=== PATIENT | female | born 1940 | race Caucasian/White ===

== ENCOUNTER 2018-12-10 21:06 | Inpatient (IN) ==
--- NOTE | 2018-12-10 21:10 | PROVIDER DOCUMENTATION ---
HPI-Fever - General Chief Complaint: Fever Stated Complaint: ? uti ams Time Seen by Provider: 12/10/18 21:07 Source: patient, EMS Allergies/Adverse Reactions: Patient Allergies Allergy/AdvReac Type Severity Reaction Status Date / Time Sulfa (Sulfonamide AdvReac RASH Verified 01/27/18 14:01 Antibiotics) Home Medications: Home Medication List Medication Instructions Recorded Confirmed Last Taken Type ATORVAstatin [Lipitor] 10 mg PO HS 01/27/18 12/11/18 12/09/18 History Lisinopril 30 mg PO DAILY 01/27/18 12/11/18 12/10/18 History Propranolol L.a. [Inderal LA] 60 mg PO QHS 01/27/18 12/11/18 12/09/18 History Insulin Glargine [Lantus] 40 unit SUBQ QAM 02/24/18 12/11/18 12/10/18 History Insulin Lispro [Humalog] See Protocol SQ TID CC 02/24/18 12/11/18 02/25/18 History 2 Levothyroxine Sodium [Levoxyl] 25 mcg PO DAILY 02/24/18 12/11/18 12/10/18 History Anastrozole [Arimidex] 1 mg PO DAILY 12/11/18 12/11/18 12/10/18 History Clopidogrel Bisulfate [Plavix] 75 mg PO HS 12/11/18 12/11/18 12/09/18 History Ergocalciferol (Vitamin D2) 50,000 unit PO Q7D 12/11/18 12/11/18 12/04/18 History [Vitamin D2] Metformin HCl 1,000 mg PO HS 12/11/18 12/11/18 12/09/18 History - History of Present Illness-Fever Nature of Presenting Problem: Patient is a 78 year old white female who presents by EMS with fever over 101, strong odor of urine, dysuria, and generalized weakness since this am. EMS gave 300ml NS and report blood sugar of 203. Patient arrives with GCS of 15, oriented to person, place, and time. Fever Severity/Quality: reports: greater than 100.5 F Onset/Duration: reports: unsure Timing: reports: still present Severity: reports: moderate Context: reports: decreased mental status Cognitive Baseline: poor alertness Modifying Factors: improves with: urinating - Glascow Coma Score Best Eye Response ([place]): (4) open spontaneously Best Verbal Response ([place]): (5) oriented Best Motor Response ([place]): (6) obeys commands Review of Systems - Adult - REVIEW OF SYSTEMS - ADULT Constitutional: reports: chills, fever Eyes: denies: discharge Ears, Nose, Mouth & Throat: reports: no symptoms reported Cardiovascular: denies: chest pain Respiratory: denies: cough, shortness of breath Gastrointestinal: denies: abdominal pain, nausea, vomiting Genitourinary: reports: see HPI, dysuria Musculoskeletal: reports: muscle weakness Integumentary: denies: rash Neurological: reports: see HPI Psychiatric: reports: see HPI. denies: suicidal thoughts Endocrine: reports: no symptoms reported Hematologic/Lymphatic: reports: no symptoms reported Allergic/Immunologic: reports: no symptoms reported All Other Systems: Reviewed and Negative Past History - Adult - PAST MEDICAL HISTORY-ADULT Review of Records: reports: Old Records Reviewed, Nursing Assessment Review, Medications Reviewed, Social history reviewed & non-contributory. Major Childhood Illnesses: reports: denies history Cardiovascular: reports: denies history Respiratory: reports: denies history Genitourinary: reports: denies history Endocrine/Immune: reports: Diabetes Physical Exam-General - PHYSICAL EXAM-ADULT Initial Vital Signs Reviewed: Yes - CONSTITUTIONAL General Appearance: alert, no apparent distress, obese, slow to respond, other (smells of strong urine) - EYES Eyes: PERRL/EOMI, other (clear) - HEAD, EARS, NOSE, MOUTH & THROAT HENMT: moist mucous membranes - NECK Neck: supple - RESPIRATORY Respiratory: lungs clear - CARDIOVASCULAR Cardiovascular: regular rate, rhythm - GASTROINTESTINAL (ABDOMEN) Abdominal Exam: non tender, soft, other (obese). negative: guarding, rebound - LYMPHATIC Lymphatic: no adenopathy - SKIN Integumentary: warm/dry - NEUROLOGIC Neurologic: grossly normal - PSYCHIATRIC Psych/Mental Status: anxious Progress - PLAN OF CARE/RESULTS Progress/Plan/Lab Results: 12/10/18 21:38 - Final Blood 12/10/18 22:36 - Final Blood Laboratory Results - last 24 hr 12/10/18 12/10/18 12/10/18 21:38 21:38 21:40 WBC 17.68 H RBC 3.99 L Hgb 12.7 Hct 36.2 L MCV 90.7 MCH 31.8 H MCHC 35.1 RDW Std Deviation 12.5 Plt Count 88 L MPV 11.8 H Immature Gran % (Auto) 0.5 Neut % (Auto) 86.2 H Lymph % (Auto) 2.5 L [place] % (Auto) 10.6 H Eos % (Auto) 0.1 Baso % (Auto) 0.1 Immature Gran # (Auto) 0.09 H Neut # (Auto) 15.24 H Lymph # (Auto) 0.44 L [place] # (Auto) 1.87 H Eos # (Auto) 0.02 Baso # (Auto) 0.02 Sodium 129 L Potassium 3.8 Chloride 96 L Carbon Dioxide 19 L Anion Gap 14 BUN 22 Creatinine 1.7 H Estimated GFR/1.73 m2 29 BUN/Creatinine Ratio 13 Glucose 181 H POC Glucose Calculated Osmolality 267 Calcium 8.9 Total Bilirubin 1.96 H AST 20 ALT 15 Alkaline Phosphatase 69 Creatine Kinase 126 Total Protein 5.8 L Albumin 3.2 L Globulin 2.6 Albumin/Globulin Ratio 1.2 Plasma Lactate 3.2 H Urine Source Urine Color Urine Turbidity Urine pH Ur Specific [place] Urine Protein Ur Glucose (Stick) Ur Ketones (Stick) Urine Blood Urine Nitrite Urine Bilirubin Urobilinogen Dipstick Urine Leukocytes Urine WBC (Auto) Urine RBC (Auto) U Epithel Cells (Auto) Urine Bacteria (Auto) Urine Crystals Small Round Cells Urine Casts Urine Yeast-like Cells 12/10/18 12/10/18 21:59 22:26 WBC RBC Hgb Hct MCV MCH MCHC RDW Std Deviation Plt Count MPV Immature Gran % (Auto) Neut % (Auto) Lymph % (Auto) [place] % (Auto) Eos % (Auto) Baso % (Auto) Immature Gran # (Auto) Neut # (Auto) Lymph # (Auto) [place] # (Auto) Eos # (Auto) Baso # (Auto) Sodium Potassium Chloride Carbon Dioxide Anion Gap BUN Creatinine Estimated GFR/1.73 m2 BUN/Creatinine Ratio Glucose POC Glucose 182 H Calculated Osmolality Calcium Total Bilirubin AST ALT Alkaline Phosphatase Creatine Kinase Total Protein Albumin Globulin Albumin/Globulin Ratio Plasma Lactate Urine Source CATH Urine Color ORANGE Urine Turbidity TURBID Urine pH 6.0 Ur Specific [place] 1.005 Urine Protein 300 A Ur Glucose (Stick) NEGATIVE Ur Ketones (Stick) NEGATIVE Urine Blood MODERATE A Urine Nitrite NEGATIVE Urine Bilirubin NEGATIVE Urobilinogen Dipstick NORMAL Urine Leukocytes LARGE A Urine WBC (Auto) TNTC A Urine RBC (Auto) TNTC A U Epithel Cells (Auto) <10 Urine Bacteria (Auto) 4+ Urine Crystals NONE SEEN Small Round Cells NONE SEEN Urine Casts NONE SEEN Urine Yeast-like Cells NONE SEEN Orders Category Date Time Status Admit - [facility] Routine AdmDCTranf 12/11/18 05:35 Active Activity - Up with Assistance ORDERED Care 12/11/18 05:35 Active Cardiac Monitoring DIRECTED Care 12/10/18 21:14 Completed IV Insertion ORDERED Care 12/10/18 21:14 Completed Intake and Output-Strict ORDERED Care 12/11/18 05:35 Active Vital Signs Order Q 8-HR ASSESS Care 12/11/18 05:35 Active Z-Document. for Tele Applied ORDERED Care 12/11/18 05:35 Completed Diabetic Diet Diet 12/11/18 05:35 Active CHEST-1 VIEW [RAD] Stat Exams 12/10/18 21:14 Completed A1C HGB W EST AVG GLUCOSE [CHEM] Routine Lab 12/11/18 06:55 Completed BLOOD CULTURE [BLDCUL] Stat Lab 12/10/18 21:38 Results CBC WITH DIFF [HEME] Routine Lab 12/11/18 06:55 Completed CBC WITH DIFF [HEME] Stat Lab 12/10/18 21:38 Completed CK PROFILE [SP CHEM] Stat Lab 12/10/18 21:38 Completed COMPREHENSIVE METABOLIC PANEL [CHEM] Routine Lab 12/11/18 06:55 Completed COMPREHENSIVE METABOLIC PANEL [CHEM] Stat Lab 12/10/18 21:38 Completed GRAM STAIN [BLDCUL] Stat Lab 12/10/18 21:38 Results GRAM STAIN [BLDCUL] Stat Lab 12/10/18 22:36 Results INFLUENZA SCREEN A/B Stat Lab 12/10/18 21:45 Completed LACTATE, PLASMA [CHEM] Stat Lab 12/10/18 21:40 Completed LACTATE, PLASMA [CHEM] Urgent Lab 12/11/18 07:05 Completed TSH Routine Lab 12/11/18 06:55 Completed URINALYSIS W/POSS RFLX CULT [URINALYSIS] Stat Lab 12/10/18 21:59 Completed URINE CULTURE [RM] Routine Lab 12/10/18 22:34 Results URINE MANUAL MICROSCOPIC [URINALYSIS] Stat Lab 12/10/18 21:59 Completed 0.9% Sodium Chloride Inj [Ns] 1,000 ml Med 12/11/18 05:35 Active IV 125 mls/hr 0.9% Sodium Chloride Inj [Ns] 1,000 ml Med 12/10/18 22:46 Discontinued IV 999 mls/hr 0.9% Sodium Chloride Inj [Ns] 1,000 ml Med 12/11/18 02:26 Discontinued IV 999 mls/hr ATORVAstatin [Lipitor] Med 12/11/18 21:00 Active 10 mg PO HS Acetaminophen [Tylenol] Med 12/10/18 21:15 Discontinued 650 mg PO NOW ONE Acetaminophen [Tylenol] Med 12/11/18 05:35 Active 650 mg PO Q6H PRN PRN Anastrozole [Arimidex] Med 12/11/18 09:00 Active 1 mg PO DAILY CefTRIAXONE [Rocephin] 1 gm Med 12/11/18 05:35 Discontinued 0.9% Sodium Chloride Inj [Ns] 50 ml IV Q24H Clopidogrel [Plavix] Med 12/11/18 21:00 Active 75 mg PO HS Enoxaparin [Lovenox] Med 12/11/18 05:35 Discontinued 30 mg SUBQ Q24H Ergocalciferol (Vitamin D2) [Vitamin D] Med 12/11/18 09:00 Active 50,000 unit PO Q7D Insulin Glargine [Basaglar] Med 12/11/18 09:00 Active 40 unit SUBQ QAM Insulin Human Regular [Humulin R] Med 12/11/18 07:00 Active See Protocol SUBQ 0700,1100,1600,2100 Levothyroxine [Synthroid] Med 12/11/18 07:00 Active 25 microgm PO DAILY@0700 Ondansetron [Zofran] Med 12/11/18 04:38 Discontinued 4 mg .ROUTE .STK-MED ONE Ondansetron [Zofran] Med 12/11/18 04:41 Discontinued 4 mg IV NOW ONE Ondansetron [Zofran] Med 12/11/18 05:35 Discontinued 4 mg IV Q4H PRN PRN Piperacillin/Tazobactam [Zosyn] 3.375 gm Med 12/10/18 22:45 Discontinued 0.9% Sodium Chloride Inj [Ns] 50 ml IV NOW Propranolol L.a. [Inderal LA] Med 12/11/18 21:00 Active 60 mg PO QHS Oxygen Device Stat Oth 12/10/18 21:14 Completed Telemetry [OM.EQ] Routine Oth 12/11/18 05:35 Active Transfer/Admit Order [TRANSFER] Routine Transfer 12/11/18 02:21 Completed Result Diagrams: 12/11/18 06:55 12/11/18 06:55 Departure - Departure Date of Disposition Decision: 12/11/18 Time of Disposition Decision: 06:30 DIAGNOSIS: Urinary tract infection Qualifiers: Urinary tract infection type: site unspecified Hematuria presence: without hematuria Qualified Code(s): N39.0 - Urinary tract infection, site not specified Leukocytosis Qualifiers: Leukocytosis type: unspecified Qualified Code(s): D72.829 - Elevated white blood cell count, unspecified Altered mental state Qualifiers: Altered mental status type: unspecified Qualified Code(s): R41.82 - Altered mental status, unspecified Disposition: ADMITTED INPATIENT 09 Certified Medical Emergency: Emergent Condition: Stable - Critical Care Note This patient required my direct & personal management of CC.: No Attestation - Physician/ MIHIR Attestation Patient care was provided by Advanced Practice Provider:: No The physician spent face to face time with patient:: Yes Advanced Practice Provider documentation review:: Supervising physician onsite and consulted in the evaluation and care of this patient. The physician did have a face to face encounter with the patient.
[2018-12-10] MEDS ORDERED: TYLENOL PO ONE (21:15)
--- NOTE | 2018-12-10 22:06 | Diag Imaging Result Doc PS360 ---
CHEST-1 VIEW - 12/10/2018 INDICATION: fever COMPARISON: 01/27/2018 FINDINGS: The lungs are normally expanded and clear. Heart size and mediastinal contours are normal. No pneumothorax or pleural effusion. IMPRESSION: Negative exam. Electronically signed by Filiberto Humphries 12/10/2018 10:04 PM
[2018-12-10 22:11] LABS: URINE SOURCE CATH
[2018-12-10 22:16] LABS: BASO# 0.02 X1000 (0.0-0.2); BASO% 0.1 % (0.0-0.8); EOS# 0.02 X1000 (0.0-0.7); EOS% 0.1 % (0.0-10.0); HEMATOCRIT 36.2 % (37.0-47.0); HEMOGLOBIN 12.7 g/dL (12.0-16.0); IMM GRAN# 0.09 X1000 (0.0-0.04); IMM GRAN% 0.5 % (0.0-0.5); LYMPH# 0.44 X1000 (1.2-3.4); LYMPH% 2.5 % (20.5-51.1); MCH 31.8 PG (27-31); MCHC 35.1 g/dL (33-37); MCV 90.7 FL (81-99); MONO# 1.87 X1000 (0.11-0.59); MONO% 10.6 % (1.7-9.3); MPV 11.8 FL (7.4-10.4); NEUT# 15.24 X1000 (1.4-6.5); NEUT% 86.2 % (42.2-75.2); PLT 88 X1000 (130-400); RBC 3.99 XMIL (4.2-5.4); RDW 12.5 % (11.5-14.5); WBC 17.68 X1000 (4.8-10.8)
[2018-12-10 22:22] LABS: BILIRUBIN URINE NEGATIVE (NEGATIVE); BLOOD URINE MODERATE (NEGATIVE); COLOR ORANGE; GLUCOSE URINE NEGATIVE (NEGATIVE); KETONE URINE NEGATIVE (NEGATIVE); LEUKOCYTES URINE LARGE (NEGATIVE); NITRITE URINE NEGATIVE (NEGATIVE); PROTEIN URINE 300 mg/dL (NEGATIVE); SP GRAVITY URINE 1.005; TURBIDITY URINE TURBID (CLEAR); UROBILINOGEN URINE NORMAL (NORMAL)
[2018-12-10 22:25] LABS: UR EPITHELIAL CELLS <10 /HPF (<10); URINE BACTERIA 4+ /HPF; URINE RBC TNTC /HPF (<10); URINE WBC TNTC /HPF (<10)
[2018-12-10 22:31] LABS: URINE CASTS NONE SEEN; URINE CRYSTALS NONE SEEN; URINE YEAST NONE SEEN
[2018-12-10 22:32] LABS: URINE SMALL ROUND CELLS NONE SEEN
[2018-12-10 22:41] LABS: ALB/GLOB RATIO 1.2; ALBUMIN 3.2 g/dL (3.5-5.0); CALCIUM 8.9 mg/dL (8.8-10.2); CREATININE 1.7 mg/dL (0.5-0.9); POTASSIUM 3.8 mmol/L (3.5-5.1); TOTAL BILIRUBIN 1.96 mg/dL (0.20-1.00); TOTAL PROTEIN 5.8 g/dL (6.3-8.3)
[2018-12-10] MEDS ORDERED: ZOSYN 3.375 GM in NS 50 ML IV ONE (22:45)
[2018-12-10] MEDS ORDERED: NS 1,000 ML IV ONE (22:46)
--- NOTE | 2018-12-11 01:48 | ED EKG INTERP ---
This chart was entered by Elvi Castaneda Scribe, acting as scribe for Arnol Leung MD. EKG Interpretation - EKG Time of EKG reading by physician:: 22:45 EKG Read and Signed by:: Arnol Leung EKG Interpretation (*Must complete 3 of following elements*): Normal Rate: 82 Rhythm: NSR [place]: normal QRS: normal [place] Interval: normal ST Wave: normal Attestation - Physician/ MIHIR Attestation Patient care was provided by Advanced Practice Provider:: No The physician spent face to face time with patient:: Yes Advanced Practice Provider documentation review:: Supervising physician onsite and consulted in the evaluation and care of this patient. The physician did have a face to face encounter with the patient. This chart was documented by the indicated scribe, (Elvi Castaneda Scribe) and accurately reflects the services I performed and decisions made by me, Arnol Leung MD, as attested by the provider's signature.
[2018-12-11] MEDS ORDERED: NS 1,000 ML IV ONE (02:26)
[2018-12-11] MEDS ORDERED: ZOFRAN ONE (04:38)
[2018-12-11] MEDS ORDERED: ZOFRAN IV ONE (04:41)
[2018-12-11] MEDS ORDERED: TYLENOL ONE (05:10)
[2018-12-11] MEDS ORDERED: ZOFRAN IV PRN (05:35)
[2018-12-11] MEDS ORDERED: LOVENOX SUBQ SCH (05:35)
[2018-12-11] MEDS ORDERED: ROCEPHIN 1 GM in NS 50 ML IV SCH (05:35)
[2018-12-11] MEDS: HUMULIN R SUBQ SCH ×4 (06:13→20:43)
[2018-12-11] MEDS: SYNTHROID PO SCH (06:13)
[2018-12-11] MEDS: NS 1,000 ML IV SCH ×4 (06:14→23:04)
--- NOTE | 2018-12-11 07:03 | PROGRESS NOTE ---
DATE: 12/11/2018 SUBJECTIVE: She came in with reports of fever, altered mentation. Her workup in the ER revealed significant UTI with [id number] white blood cells and red blood cells, low sodium, creatinine of 1.7. She is on a diuretic. She does have lactate elevation. In any case, the patient came in, she was found to have UTI with possibly some early degree of sepsis. OBJECTIVE: She is a bit lethargic, but overall doing okay. ASSESSMENT AND PLAN: [place] [address] and a creatinine of 1.7. She does not appear to be volume overloaded. The patient had clinically features of UTI cystitis and features of encephalopathy likely related to UTI cystitis, although this certainly could be developing into pyelonephritis. We will continue treatment with IV antibiotics, IV fluids, follow up on urine culture and monitor closely. This is a patient of Dr. Priyank Perez. This is an accessory note to Ana Gonzalez. cc: Luis Frazier MD
[2018-12-11 07:16] LABS: BASO# 0.01 X1000 (0.0-0.2); BASO% 0.1 % (0.0-0.8); EOS# 0.01 X1000 (0.0-0.7); EOS% 0.1 % (0.0-10.0); HEMATOCRIT 32.6 % (37.0-47.0); IMM GRAN# 0.07 X1000 (0.0-0.04); IMM GRAN% 0.5 % (0.0-0.5); LYMPH# 0.41 X1000 (1.2-3.4); LYMPH% 3.2 % (20.5-51.1); MCH 30.8 PG (27-31); MCHC 33.7 g/dL (33-37); MCV 91.3 FL (81-99); MONO# 0.98 X1000 (0.11-0.59); MONO% 7.6 % (1.7-9.3); MPV 11.3 FL (7.4-10.4); NEUT# 11.46 X1000 (1.4-6.5); NEUT% 88.5 % (42.2-75.2); PLT 78 X1000 (130-400); RBC 3.57 XMIL (4.2-5.4); RDW 12.8 % (11.5-14.5); WBC 12.94 X1000 (4.8-10.8)
[2018-12-11 07:33] LABS: ALBUMIN 2.7 g/dL (3.5-5.0); CALCIUM 8.1 mg/dL (8.8-10.2); CREATININE 2.1 mg/dL (0.5-0.9); POTASSIUM 3.8 mmol/L (3.5-5.1); TOTAL BILIRUBIN 1.49 mg/dL (0.20-1.00); TOTAL PROTEIN 5.3 g/dL (6.3-8.3)
[2018-12-11 07:38] LABS: HEMOGLOBIN A1C 5.7 % (4.8-6.0)
[2018-12-11 07:53] LABS: BANDS 10 % (0-1); LYMPHS 3 % (21-51); MONO 4 % (1-9); SEGS 83 % (42-75)
--- NOTE | 2018-12-11 08:38 | Diag Imaging Result Doc PS360 ---
EXAM: CT HEAD W/O CONTRAST 12/11/2018 HISTORY: encephalopathy TECHNIQUE: This exam was performed using automated exposure control, adjustment of mA or kV according to patient size, and/or use of iterative reconstruction technique. COMMENT: There is hyperostosis of the calvarium particularly in the frontal region. There is no evidence of mass effect, bleed, or abnormal extra-axial fluid collection. Compared to the previous examination of 01/27/2018 the appearance of the brain has not changed significantly. The visualized paranasal sinuses are clear. There is some opacification of the right mastoid air cells which was also the case at the time the previous study. IMPRESSION: No evidence of acute intracranial disease. Chronic right mastoid effusion. Electronically signed by Joaquin Beaulieu 12/11/2018 8:35 AM
[2018-12-11] MEDS ORDERED: VITAMIN D PO SCH (09:00)
[2018-12-11] MEDS: ARIMIDEX PO SCH (09:41)
[2018-12-11] MEDS: BASAGLAR SUBQ SCH (09:44)
[2018-12-11] MEDS ORDERED: CALMOSEPTINE OINTMENT TOP PRN (11:32)
--- NOTE | 2018-12-11 14:47 | HISTORY AND PHYSICAL ---
PRIMARY CARE PROVIDER: Priyank Perez MD CHIEF COMPLAINT: Fever, urinary symptoms, and altered mental status. HISTORY OF PRESENT ILLNESS: Ms. Мария Hernandez is a 78-year-old, elderly, female who states that since yesterday that she has been having dysuria, urinary frequency, fever, body aches and chills as well as some nausea, vomiting, and lower abdominal pain and low back pain. The patient also reports that she has had a strong odor noted to her urine as well as it has been darker in color. Later in the afternoon yesterday her son reports that they did return home in the afternoon and the patient was having some confusion and was also having difficulty getting her thoughts or words out. They did bring her to the E.R. for further evaluation. She denies any headache, dizziness, or lightheadedness. She denies any chest pain. The patient did report 2 episodes of diarrhea yesterday though has not had any since. She denies any hematochezia or melena. She does have some chronic swelling noted to her bilateral lower extremities but the patient states that this has not worsened. Normally the patient is ambulatory with a walker though has been having some generalized weakness over the past day or so. She denies any history of frequent urinary tract infections or recently being treated for a urinary tract infection or taking any antibiotics for anything. Upon evaluation in the E.R. she was noted to have leukocytosis with a white blood cell count of 17,680. A urinalysis did show a moderate amount of blood, large leukocytes, too numerous to count WBCs and RBCs, 4+ bacteria. The patient's urine in the E.R. did have a strong odor and was a light maikol color. She also did appear to have an acute kidney injury with a creatinine of 1.7 with a previous of 0.9 in February of 2018. She did report that over the last day or so she has not felt well and has also been having some nausea and did have an episode or two of vomiting and has not been eating or drinking well secondary to this. They did perform a chest x-ray which was negative for any acute abnormalities. They did an influenza screen which was negative as well. Blood cultures and a urine culture have been obtained. They did initially give her Zosyn in the E.R. although due to her acute kidney injury we have changed this to Rocephin. Upon my evaluation in the E.R. the patient is alert and oriented to person, place, time, and situation though there are occasional moments where the patient does have difficulty recalling more like remote history though she is able to answer questions related to the history of present illness. She does have generalized weakness noted but does not have any focal neurological deficits present. Speech is clear and understandable. She has no facial droop noted. There is no arm drift noted as well. She has equal hand grasp and muscle strength bilaterally. She denies any numbness or tingling in the extremities. She will be placed on the medical floor with telemetry for further treatment and evaluation. REVIEW OF SYSTEMS: A 14 point review of systems was conducted with the patient and all were negative except for pertinent positives mentioned above in the HPI. PAST MEDICAL HISTORY: 1. Hypertension. 2. Hyperlipidemia. 3. Diabetes mellitus type 2. 4. History of uterine cancer, status post hysterectomy and radiation. 5. History of breast cancer, status post left mastectomy. The patient reports that she did not have to receive radiation or chemotherapy with her breast cancer. 6. Peripheral artery disease. 7. History of rheumatic fever. 8. Hypothyroidism. PAST SURGICAL HISTORY: 1. Cholecystectomy. 2. Hysterectomy. 3. Left mastectomy. SOCIAL HISTORY: The patient has no known history of tobacco, alcohol, or illicit drug use. Her son at the bedside states that she is home by herself during the day though she does have family that is home with her at night. The patient does require ambulatory assistance of a walker. FAMILY HISTORY: Positive for her mother having a history of bladder problems. Her father did have a history of renal cancer and did pass away secondary to this. Her brother had a history of pancreatic cancer. ALLERGIES: The patient reports an allergy to sulfa. HOME MEDICATIONS: 1. Arimidex 1 mg p.o. daily. 2. Atorvastatin 10 mg p.o. at bedtime. 3. Plavix 75 mg p.o. at bedtime. 4. Vitamin D2 50,000 units p.o. every 7 days. 5. Lantus 40 units subcutaneously every a.m. 6. Humalog subcutaneously per sliding scale 3 times a day. 7. Levothyroxine 25 mcg p.o. daily. 8. Lisinopril 30 mg p.o. daily. 9. Metformin 1,000 mg p.o. at bedtime. 10.Inderal LA 60 mg p.o. nightly at bedtime. DIAGNOSTIC DATA AND LABORATORY RESULTS: White blood cell count is 17,680, hemoglobin 12.7, hematocrit 36.2, and platelet count 88. Sodium is 129, potassium 3.8, chloride 96, serum bicarb 19, BUN 22, creatinine 1.7 with a GFR of 29, glucose 181, calcium 8.9, total bilirubin 1.96, AST 20, ALT 15, and alkaline phosphatase 69. CK is 126 with a plasma lactate of 3.2. Urinalysis was obtained via catheter and was positive for protein, moderate blood, large leukocytes, too numerous to count white blood cells and RBCs, and 4+ bacteria. Chest x-ray showed no acute abnormalities. Influenza screen was negative. Pending diagnostic studies at this time are blood cultures and a urine culture. PHYSICAL EXAMINATION: VITAL SIGNS: Temperature is 98.8, heart rate 85, respirations 16, and blood pressure 109/55. Oxygen saturation is 100% on nasal cannula at 2 L. We are going to take the patient off her nasal cannula 2 L. She does not have any history of lung disease and she does not wear oxygen at home. She was 96% on room air. We will recheck her pulse oximetry shortly after removing this and we will monitor response and continue to follow. GENERAL: Ms. Hernandez is a 78-year-old, elderly, female. She is resting in the E.R. stretcher. She was in no acute distress. She was awake, alert, and able to answer all questions appropriately. HEENT: The head is atraumatic, normocephalic. Pupils are equal, round, and reactive to light. They were 3 mm bilaterally and brisk. Oral mucosa is slightly dry. Oropharynx is clear. NECK: Supple. Trachea is midline. CARDIOVASCULAR: The patient has S1 and S2 present. She does have a murmur noted as well though there are no other gallops or rubs present. She has regular rate and rhythm. PULMONARY: The patient has symmetrical chest expansion bilaterally. Lungs sounds are clear to auscultation in bilateral full spivey. ABDOMEN: Soft. It does not appear to be distended but the patient does have a protuberant abdomen noted. She was nontender upon palpation. Bowel sounds were present in all four quadrants and were slightly hyperactive. EXTREMITIES: No cyanosis noted but the patient does have some slight swelling noted to bilateral lower extremities just proximal to the ankle down bilaterally. This is nonpitting. Pulse, motor, and sensory are intact in all extremities. Radial and pedal pulses were 2+ bilaterally. Capillary refill is less than 3. INTEGUMENTARY: The patient's skin is pink, warm, dry, and intact. NEUROLOGICAL: The patient is alert and oriented to person, place, time, and situation. She was able to recognize and name her son at bedside. Her speech is clear and understandable. She does have some generalized weakness noted. She has no focal neurological deficits present. She had no arm drift or facial drooping noted. ASSESSMENT AND PLAN: 1. Urinary tract infection. For this we have obtained blood cultures and a urine culture. She has been placed on an antibiotic, Rocephin 1 gram IV every 24 hours. We will await culture results and continue to follow. 2. Acute kidney injury. This is likely secondary to her urinary tract infection as well as decreased oral fluid intake secondary to some nausea and vomiting. We will hydrate the patient. She has received a normal saline bolus in the Emergency Room and we will continue with normal saline at 125 mg/hr. We will do strict intake and output. We will avoid nephrotic medications and renally dose medicines as necessary. We have held her Lisinopril and metformin at this time secondary to this. We will continue to follow. 3. Mild fluid volume depletion. We will continue with gentle IV fluid hydration as mentioned above. 4. Diabetes mellitus. We will continue with her sliding scale insulin. We will do pattern fingerstick blood sugars and we have held her metformin secondary to her acute kidney injury. 5. Hypertension. We will continue with her Inderal LA though we have held her Lisinopril secondary to her kidney injury as well. 6. Hypothyroidism. We will continue her levothyroxine. We have ordered a TSH. The patient has been placed on the medical floor on telemetry. She will have vital signs every 8 hours. Strict intake and output. We will repeat a CBC and CMP in the morning. She will be on a diabetic diet. Also, given the findings of the patient's heart murmur we have ordered an echocardiogram and we will await those results as well. Further orders and recommendations pending hospital course, diagnostic studies, and physician evaluation. This is DANILO Acosta dictating for Dr. Frazier. Dictated by DANILO Acosta for Luis Frazier MD cc: Luis Frazier MD
[2018-12-11] MEDS: ZOFRAN IV PRN (17:31)
[2018-12-11] MEDS: ZOSYN 2.25 GM in NS 50 ML IV SCH ×2 (17:36→20:41)
--- NOTE | 2018-12-11 18:18 | ECHO REPORT ---
ORDER DATE: 12/11/2018 ECHOCARDIOGRAPHIC MEASUREMENTS: 1. Interventricular septum 1.3. 2. Left ventricular posterior wall 1.3. 3. Diastolic diameter 5.6. 4. Left atrium 4.0. 5. Aorta 3.2. SUMMARY: 1. Mitral valve leaflets are normal. 2. There is moderate mitral annular calcification. 3. Aortic valve leaflets were trileaflet. 4. Calcified tricuspid valve was normal. 5. Pulmonic valve was normal. 6. There is mild mitral regurgitation. 7. There is diastolic dysfunction. 8. There is moderate tricuspid regurgitation. Peak velocity across the tricuspid valve was 3.1 m/sec. 9. Pulmonary artery systolic pressure of 49 mmHg. 10. Peak velocity across the aortic valve was 2.8 m/sec. Mean gradient of 14 mmHg aortic valve area of 1.2 sq cm. There is [id number] aortic stenosis. There is no aortic regurgitation. 11. Normal left ventricular cavity size. Estimated ejection fraction of 55-60%. There is mild left ventricular hypertrophy associated with diastolic dysfunction. 12. There is no pericardial effusion or obvious intracardiac mass or thrombus seen. cc: Wilfredo Andres MD
[2018-12-11] MEDS: LIPITOR PO SCH (20:42)
[2018-12-11] MEDS: PLAVIX PO SCH (20:42)
[2018-12-11] MEDS: INDERAL LA PO SCH (20:42)
[2018-12-12] MEDS: TYLENOL PO PRN ×2 (00:27→08:10)
[2018-12-12] MEDS: ZOSYN 2.25 GM in NS 50 ML IV SCH ×4 (01:49→20:09)
[2018-12-12] MEDS: NS 1,000 ML IV SCH ×4 (05:20→22:05)
[2018-12-12] MEDS: HUMULIN R SUBQ SCH ×4 (06:33→20:14)
[2018-12-12] MEDS: SYNTHROID PO SCH (06:41)
[2018-12-12] MEDS: ARIMIDEX PO SCH (08:10)
[2018-12-12] MEDS: BASAGLAR SUBQ SCH (08:11)
[2018-12-12 08:17] LABS: BASO# 0.01 X1000 (0.0-0.2); BASO% 0.1 % (0.0-0.8); EOS# 0.25 X1000 (0.0-0.7); EOS% 2.2 % (0.0-10.0); HEMATOCRIT 32.5 % (37.0-47.0); HEMOGLOBIN 10.9 g/dL (12.0-16.0); IMM GRAN# 0.02 X1000 (0.0-0.04); IMM GRAN% 0.2 % (0.0-0.5); LYMPH# 0.54 X1000 (1.2-3.4); LYMPH% 4.8 % (20.5-51.1); MCH 30.8 PG (27-31); MCHC 33.5 g/dL (33-37); MCV 91.8 FL (81-99); MONO# 0.93 X1000 (0.11-0.59); MONO% 8.2 % (1.7-9.3); MPV 11.7 FL (7.4-10.4); NEUT# 9.59 X1000 (1.4-6.5); NEUT% 84.5 % (42.2-75.2); PLT 71 X1000 (130-400); RBC 3.54 XMIL (4.2-5.4); RDW 12.9 % (11.5-14.5); WBC 11.34 X1000 (4.8-10.8)
[2018-12-12 08:29] LABS: ALB/GLOB RATIO 0.8; ALBUMIN 2.6 g/dL (3.5-5.0); CALCIUM 7.9 mg/dL (8.8-10.2); CREATININE 2.6 mg/dL (0.5-0.9); TOTAL BILIRUBIN 0.95 mg/dL (0.20-1.00); TOTAL PROTEIN 5.8 g/dL (6.3-8.3)
--- NOTE | 2018-12-12 15:34 | PROGRESS NOTE ---
DATE: 12/12/2018 SUBJECTIVE: This patient feels better today but she has been having low grade temperature, yesterday she had a fever at 101 but she seems to be getting better, we have a positive urine culture that showed E. coli which she is basically pansensitive and also we have a blood culture 2/2 that showed gram-negative enzo, I will wait for the final sensitivity and I will keep this patient on Zosyn. Even though she has been getting IV fluids constantly the BUN and creatinine are trending up, she has an acute kidney injury. BUN and creatinine today are 39 and 2.6 respectively, hemoglobin A1c 5.7, glucose level 150. OBJECTIVE: Vital Signs: Temperature 98.9 degrees, pulse 67, respiratory rate 20, blood pressure 139/48, oxygen saturation 98 on room air. HEENT: Head. Normocephalic, no trauma. PERRLA. Neck: Supple. No JVD. No masses. Central trachea. Chest: Clear to auscultation. No wheezing, no rales. Abdomen: Soft, nontender, nondistended. No hepatosplenomegaly. Extremities: No edema, no clubbing, no cyanosis. Neurologic: The patient is alert and oriented x3. No focal deficits. LABORATORY DATA: WBC 11.3, hemoglobin 10.9, hematocrit 32.5, platelet 71,000. Sodium 135, potassium 4, chloride 105, bicarbonate 18, BUN 39, creatinine 2.6, glucose 150, calcium 7.9, albumin 2.6. ASSESSMENT AND PLAN: 1. Sepsis secondary to urinary tract infection, bacteremia, this patient has a blood culture that showed gram-negative rods and urine culture showed Escherichia coli which is pansensitive, continue with Zosyn, continue to monitor, continue with IV fluids as well. 2. Urinary tract infection as above. 3. Bacteremia as above. 4. Acute kidney injury likely secondary to dehydration. Apparently this patient has been having some nausea and vomiting before coming to the hospital, she will continue with normal saline, I will place a Arambula catheter to make sure that we are measuring the in and out and will monitor this patient closely. 5. Dehydration, she looks more hydrated at this moment. Will continue with same management. 6. Diabetes, controlled. Continue with same treatment. 7. Hypertension. Continue with same management, lisinopril has been stopped due to acute kidney injury. 8. Hypothyroidism. Continue with levothyroxine. Mauricio#: [id number] cc: Amilcar Alvarez MD
[2018-12-12] MEDS: ZOFRAN IV PRN (17:17)
[2018-12-12] MEDS: LIPITOR PO SCH (20:09)
[2018-12-12] MEDS: PLAVIX PO SCH (20:09)
[2018-12-12] MEDS: INDERAL LA PO SCH (20:09)
[2018-12-13] MEDS: ZOSYN 2.25 GM in NS 50 ML IV SCH ×2 (02:18→09:36)
[2018-12-13] MEDS: NS 1,000 ML IV SCH ×3 (02:18→14:46)
[2018-12-13] MEDS: HUMULIN R SUBQ SCH ×4 (06:23→20:51)
[2018-12-13] MEDS: SYNTHROID PO SCH (06:23)
[2018-12-13 08:18] LABS: BASO# 0.02 X1000 (0.0-0.2); BASO% 0.2 % (0.0-0.8); EOS# 0.46 X1000 (0.0-0.7); HEMATOCRIT 33.6 % (37.0-47.0); HEMOGLOBIN 11.2 g/dL (12.0-16.0); IMM GRAN# 0.08 X1000 (0.0-0.04); IMM GRAN% 0.9 % (0.0-0.5); LYMPH# 0.47 X1000 (1.2-3.4); LYMPH% 5.1 % (20.5-51.1); MCH 30.7 PG (27-31); MCHC 33.3 g/dL (33-37); MCV 92.1 FL (81-99); MONO% 8.7 % (1.7-9.3); MPV 11.8 FL (7.4-10.4); NEUT# 7.36 X1000 (1.4-6.5); NEUT% 80.1 % (42.2-75.2); PLT 92 X1000 (130-400); RBC 3.65 XMIL (4.2-5.4); RDW 12.5 % (11.5-14.5); WBC 9.19 X1000 (4.8-10.8)
[2018-12-13] MEDS: ARIMIDEX PO SCH (09:37)
[2018-12-13] MEDS: BASAGLAR SUBQ SCH (09:38)
--- NOTE | 2018-12-13 09:58 | EKG Report ---
Test Performed on : 12/10/2018 10:44:15 PM Test Reason : ED. No order in [place] Blood Pressure : / mmHG Vent. Rate : 082 BPM Atrial Rate : 082 BPM P-R Int : 148 ms QRS Dur : 090 ms QT Int : 380 ms P-R-T Axes : 048 -13 016 degrees QTc Int : 443 ms Normal sinus rhythm. Normal ECG When compared with ECG of 24-FEB-2018 10:26, premature ventricular complexes. are no longer present Unconfirmed Result
--- NOTE | 2018-12-13 12:23 | INFECTIOUS DISEASE CONSULT REP ---
DATE: 12/13/2018 CONCLUSION: The patient has an E. coli urinary tract infection with an associated bacteremia. I think there is a possibility that the patient may have endocarditis from the bacteremia. RECOMMENDATIONS: I have switched the patient from Zosyn to Levaquin. I have put [facility] a [facility]. I have ordered a portable renal ultrasound and when the patient's Arambula catheter is out, I plan to measure the patient's postvoid residual urine. If there is urinary retention, then I think a urology consult would be in order. DISCUSSION: The patient tells me that about 4 days ago, she started having fever, chills, and dysuria. She has come in the hospital and here, she has blood and urine growing E. coli. The patient's CBC shows a white count of 9190, hemoglobin 11.2, and platelet count 92,000. Urinalysis shows white cells and bacteria. Creatinine is 2.6. GFR is 18. Both blood and urine are growing E. coli. An echocardiogram did not show the presence of a vegetation. CT scan of the head showed chronic mastoid effusion. MEDICAL SERVICES ASSISTANT HISTORY: The patient is a 1, para 1, AB 0. She has had a hysterectomy and bilateral salpingo-oophorectomy for cancer of the uterus. REVIEW OF SYSTEMS: Eyes and Ears: The patient has decreased hearing. She needs glasses. Neck: No stiffness. Respiratory: No cough or dyspnea at rest. Cardiovascular: No chest pain or palpitations. : See present illness. GI: No nausea, vomiting, or diarrhea. In the past 4 days, the patient has been anorectic but starting today, she is gaining back her appetite. Neurologic: There are no seizures. There is no recent loss of motor or sensory function. Head, Eyes, Ears, Nose, and Throat: The patient has decreased hearing and she wears glasses for reading. Integument: No rash. Bones, Joints, and Muscles: The patient can walk with the aid of a walker. She does not complain of any swollen joints or muscle aching. Endocrine: The patient has diabetes and hypothyroidism. PREVIOUS HOSPITALIZATIONS AND OPERATIONS: The patient has had a labor and delivery, a hysterectomy. The patient, in addition to a hysterectomy, had a bilateral salpingo-oophorectomy. Both of these surgeries were done because of the patient having cancer of the uterus. The patient has had a left mastectomy for breast cancer and, finally, the patient has had a cholecystectomy. MEDICAL DISEASES: Positive for diabetes mellitus, hypertension, breast cancer, and uterine cancer, hypothyroidism, and hyperlipidemia. INFECTIOUS DISEASE HISTORY: Positive for pneumonia and UTI. FAMILY HISTORY: Positive for cancer and stroke. SOCIAL HISTORY: The patient [place] . [place]. She has a dog as a pet. ALLERGIES: She is allergic to sulfa. HOME MEDICATIONS: Include Arimidex, Lipitor, Plavix, insulin, Synthroid, lisinopril, metformin, and propranolol. PHYSICAL EXAMINATION: Vital Signs: Temperature is 100.1 degrees, pulse 73, respirations 18, blood pressure 157/64. The patient is 5 feet and 2 inches tall, weighs 226 pounds. General: This is an obese, elderly female. She is in no acute distress. Head, Eyes, Ears, Nose, and Throat: She can hear my spoken words and see near objects. However, her hearing is greatly reduced. The patient does not have any white patches on her tongue. Neck: No meningismus. Lungs: Clear to auscultation. Cardiovascular: Heart rate is regular. The patient has a systolic murmur. Abdomen and Flanks: Soft and nontender. Neurologic: The patient is awake. She can move her extremities. There is no tremor. Her sensation is intact to touch. Her memory as regarding her medical history was good. Integument: No rash noted. Thank you for the consult. cc: Casper Stiles MD
--- NOTE | 2018-12-13 12:47 | Diag Imaging Result Doc PS360 ---
EXAM: US RENAL 2 (RETROPER) COMPLETE INDICATION: UTI TECHNIQUE: COMPARISON: 01/21/2013 FINDINGS: There is dilation of both the right and the left renal collecting systems, right greater than left. This is not appreciated on the previous study and could be acute. No solid renal mass is identified. Right kidney measures 9.9 cm and the left kidney measures 10.7 cm in the greatest longitudinal axes. The renal cortices both measure up to 0.9 cm in thickness. There is a Arambula catheter in urinary bladder and the bladder is nondistended. IMPRESSION: Bilateral dilated renal collecting systems, more prominent on the right. Acute or subacute hydronephrosis cannot be excluded. Electronically signed by Leon Castaneda 12/13/2018 12:44 PM
--- NOTE | 2018-12-13 13:03 | PROGRESS NOTE ---
DATE: 12/13/2018 SUBJECTIVE: No acute events overnight. She is still having some fever today. She is bacteremic, and also she has a UTI with E coli positive cultures. Pending BMP at this moment. Arambula catheter has been placed. It looks like she is making good urine. OBJECTIVE: Vital Signs: Temperature at 7:24 a.m. 100.1, pulse 73, respiratory rate 18, blood pressure 157/64, oxygen saturation 97% on room air. HEENT: Head normocephalic, no trauma. PERRLA. Neck: Supple. No JVD. No masses. Central trachea. Chest: Clear to auscultation. No wheezing. No rales. Abdomen: Soft, nontender, nondistended. No hepatosplenomegaly. Extremities: No edema. No clubbing. No cyanosis. Cardiovascular: RRR. Possible murmur. Neurological: The patient is alert and oriented x3. No focal deficits. LABORATORY DATA: WBC 9.1, hemoglobin 11.2, hematocrit 33.6, platelets 92,000. Glucose 189, pending BMP. ASSESSMENT AND PLAN: 1. Sepsis secondary to urinary tract infection, bacteremia. This patient has a positive blood culture that showed Escherichia coli. Infectious Disease department on board. We will get an echocardiogram to rule out endocarditis since this patient possibly has a murmur. 2. Urinary tract infection. As above. As soon as we can, we are going to remove the Arambula catheter which has been in place because of her acute kidney injury. We are measuring right now her intake and output, but there is a possibility of bladder retention of the urine. Infectious Disease department has requested to remove the Arambula catheter once the kidney function is better so we can probably consult Urology. 3. Acute kidney injury, likely secondary to dehydration. Also this patient has been having some nausea and vomiting before coming to the hospital. I will decrease the rate of the IV fluids since this patient now has some extremity edema. She seems to be making good urine and she is tolerating p.o. and hopefully if she recovers her kidney function, we are going to be able to stop the IV fluids completely. 4. Dehydration. As above. 5. Diabetes, controlled. 6. Hypertension. Continue with the same management. Lisinopril has been stopped due to acute kidney injury. 7. Hypothyroidism. Continue with levothyroxine. cc: Amilcar Alvarez MD
[2018-12-13] MEDS: LEVAQUIN 250 MG/D5W 250 MG/50 ML IVPB IV SCH (13:12)
--- NOTE | 2018-12-13 14:02 | CONSULTATION ---
DATE OF CONSULTATION: 12/13/2018 IMPRESSION: 1. Consulted for pursuit of transesophageal echocardiography in patient with bacteremia and cardiac murmur. 2. Urinary tract infection with Escherichia coli and associated bacteremia with gram-negative rods. 3. Chronic kidney disease. 4. Hypertension. 5. Type 2 diabetes mellitus. 6. History of breast cancer and previous left mastectomy. RECOMMENDATIONS: Indication of potential hazards for transesophageal echocardiography discussed with the patient. She wished to proceed. We will make arrangements for study to be performed tomorrow and hold patient NPO after midnight. HISTORY: This 78-year-old white female with past history of type 2 diabetes mellitus, hypertension, hyperlipidemia and chronic kidney disease was admitted with dysuria, urinary frequency, fever, body aches and chills, as well as some nausea, vomiting, lower abdominal pain. She has been found to have E. Coli urinary tract infection. She also had positive blood cultures for gram-negative enzo. She is feeling better with treatment and hydration. Because of her murmur and bacteremia, transesophageal echocardiogram is requested and Cardiology consulted. She denies any chest discomfort or dyspnea. PAST MEDICAL HISTORY: 1. Type 2 diabetes mellitus. 2. Hypertension. 3. Hyperlipidemia. 4. Uterine cancer. Patient is status post hysterectomy and radiation therapy. 5. Breast cancer. Patient is status post left mastectomy. 6. Peripheral artery disease. 7. History of rheumatic fever. 8. Hypothyroidism. PAST SURGICAL HISTORY: Cholecystectomy, hysterectomy and left mastectomy. ALLERGIES: Patient is allergic or intolerant to sulfa. MEDICATIONS: As listed. SOCIAL HISTORY: The patient does not smoke nor use alcohol. FAMILY HISTORY: Negative for premature coronary disease. REVIEW OF SYSTEMS: Pulmonary: Negative. Gastrointestinal: Noncontributory beyond history of present illness. Constitutional: Noncontributory beyond history of present illness. Remaining review of systems negative/noncontributory beyond history of present illness with 14 total systems reviewed. PHYSICAL EXAMINATION: General: This is an obese older white female in no distress. Vital signs: Blood pressure 157/64, heart rate 73, oxygen saturation 97% on room air. HEENT: Extraocular movements intact. Mucous membranes are moist. Neck: Supple without jugular venous distention. There are no carotid bruits. Chest: Clear to auscultation. Cardiac: Reveals a regular rate and rhythm with a soft systolic murmur at the left ventricular apex. No gallop could be appreciated. Abdomen: Soft, nontender. Bowel sounds are normal. Extremities: Without edema. There is no peripheral stigmata of endocarditis. PERTINENT DATA: Twelve lead EKG demonstrates sinus rhythm is within normal limits. Transthoracic echocardiography reports moderate mitral annular calcification with mild mitral regurgitation, trileaflet aortic valve with Doppler evidence of mild aortic stenosis and normal left ventricular ejection fraction. LABORATORY DATA: Includes a white blood cell count 9.19, hematocrit 33.6, hemoglobin 11.2, platelet count 92,000. cc: Jama Rodriguez MD
[2018-12-13 14:18] LABS: CALCIUM 7.8 mg/dL (8.8-10.2); CREATININE 1.9 mg/dL (0.5-0.9)
[2018-12-13] MEDS: INDERAL LA PO SCH (20:58)
[2018-12-13] MEDS: PLAVIX PO SCH (20:58)
[2018-12-13] MEDS: LIPITOR PO SCH (20:58)
[2018-12-14] MEDS: NS 1,000 ML IV SCH ×2 (05:30→21:42)
[2018-12-14] MEDS: SYNTHROID PO SCH (06:36)
[2018-12-14] MEDS: HUMULIN R SUBQ SCH ×4 (06:36→21:41)
[2018-12-14 07:59] LABS: BASO# 0.02 X1000 (0.0-0.2); BASO% 0.3 % (0.0-0.8); EOS# 0.28 X1000 (0.0-0.7); EOS% 3.7 % (0.0-10.0); HEMATOCRIT 31.2 % (37.0-47.0); HEMOGLOBIN 10.4 g/dL (12.0-16.0); IMM GRAN# 0.05 X1000 (0.0-0.04); IMM GRAN% 0.7 % (0.0-0.5); LYMPH# 0.75 X1000 (1.2-3.4); MCH 30.4 PG (27-31); MCHC 33.3 g/dL (33-37); MCV 91.2 FL (81-99); MPV 11.2 FL (7.4-10.4); NEUT# 5.51 X1000 (1.4-6.5); NEUT% 73.3 % (42.2-75.2); PLT 89 X1000 (130-400); RBC 3.42 XMIL (4.2-5.4); RDW 12.5 % (11.5-14.5); WBC 7.51 X1000 (4.8-10.8)
[2018-12-14 08:13] LABS: ALB/GLOB RATIO 0.8; ALBUMIN 2.4 g/dL (3.5-5.0); CREATININE 1.5 mg/dL (0.5-0.9); POTASSIUM 3.8 mmol/L (3.5-5.1); TOTAL BILIRUBIN 0.56 mg/dL (0.20-1.00); TOTAL PROTEIN 5.6 g/dL (6.3-8.3)
[2018-12-14 08:18] LABS: INR 1.12; PROTIME 15.3 Seconds (11.0-16.0)
[2018-12-14] MEDS: ARIMIDEX PO SCH (09:37)
[2018-12-14] MEDS ORDERED: BLISTEX MEDICATED BERRY LIP BALM TOP PRN (10:09)
[2018-12-14] MEDS ORDERED: SODIUM CHLORIDE 0.9% 10 ML ONE (11:13)
[2018-12-14] MEDS ORDERED: XYLOCAINE 2% VISCOUS ONE (11:13)
[2018-12-14] MEDS ORDERED: XYLOCAINE-MPF 2% ONE (11:24)
[2018-12-14] MEDS ORDERED: DIPRIVAN 1% ONE (11:24)
[2018-12-14] MEDS ORDERED: NS 1,000 ML ONE (11:33)
[2018-12-14] MEDS ORDERED: ANESTHESIA PB SET 88 IN 5742 ONE (11:33)
[2018-12-14] MEDS ORDERED: CLAVE TWINSITE 32 IN 11959 ONE (11:33)
[2018-12-14] MEDS ORDERED: CLAVE PUMP SET NO FILTER 12260 ONE (11:35)
[2018-12-14] MEDS: LEVAQUIN 250 MG/D5W 250 MG/50 ML IVPB IV SCH (13:25)
[2018-12-14] MEDS: BASAGLAR SUBQ SCH (13:43)
--- NOTE | 2018-12-14 14:41 | PROGRESS NOTE ---
DATE: 12/14/2018 SUBJECTIVE: Patient reports feeling fine, but denies any fever, chills. Last night it was recorded a 100.4 temperature. OBJECTIVE: Vital Signs: Temperature 98.3 degrees, heart rate 67, respiratory rate 18, blood pressure 172/60, O2 saturation 98% on room air. General examination: This is a chronically ill- appearing 78-year-old female, lying in bed, in no acute distress. HEENT: Head is normocephalic, atraumatic. Neck: No JVD noted. No carotid bruit. Cardiovascular: S1, S2 heard. No murmurs, gallops, or rubs. Regular rate and rhythm. Respiratory: Clear bilaterally to auscultation. No work of breathing or using accessory muscles. Abdomen: Soft, nontender to palpation. Bowel sounds present. No organomegaly. Extremities: No clubbing, cyanosis, or edema. Peripheral pulses present in all legs. Neurological: Patient is alert and oriented x3. Moves 4 extremities. LABORATORY DATA: Reviewed. ASSESSMENT AND PLAN: 1. Sepsis secondary to Escherichia coli bacteremia. The patient has been placed on Levaquin as per Infectious Disease recommendations. Dr. Stiles was concerned for possible endocarditis, so Cardiology has been consulted to perform a GABRIELE. That is going to be done tomorrow. So far, she has spiked one episode of temperature at midnight of 100.4. We will continue to monitor this patient closely. 2. Urinary tract infection secondary to Escherichia coli. The patient had a Arambula catheter. That has been removed. 3. Acute kidney injury secondary to dehydration. The renal function is 1.5. I think that this could be acute on chronic kidney disease. We will continue to monitor BMP. Currently she is receiving gentle IV hydration with normal saline at 75 mL per hour. We will continue with the same management. 4. Diabetes mellitus, type 2. We will continue with the Accu-Chek before meals and also at bedtime and insulin sliding scale. 5. Hypertension. Blood pressure is in the range of 150s and 160s. At this point, we will continue to monitor this patient. I think the blood pressure is a little bit elevated because of the IV fluids. Patient is receiving propranolol. I think at this point, considering the blood pressure did not get higher at night, we will add amlodipine to her current treatment, and we will continue to monitor. cc: Dorian Ang MD
[2018-12-14 15:30] LABS: INR 1.09
[2018-12-14] MEDS ORDERED: APRESOLINE IV PRN (17:29)
[2018-12-14] MEDS ORDERED: NORVASC PO ONE (17:30)
--- NOTE | 2018-12-14 20:36 | INFECTIOUS DISEASE PROGRESS NO ---
DATE: 12/14/2018 PRESENT ILLNESS: Ms. Hernandez is being treated for an Escherichia coli urinary tract infection with an associated bacteremia. MEDICATIONS: She is receiving Levaquin 250 mg IV daily as a renally modified dose. PHYSICAL EXAMINATION: Vital Signs: Temperature is 98.3, pulse rate 69, respiratory rate 18, blood pressure 186/58, O2 sat is 98% on 2 L nasal cannula. General: This is a morbidly obese, elderly female. She is lying in bed, currently in no acute distress. HEENT: Atraumatic, normocephalic. Oral mucous membranes are pink and moist. Conjunctivae are pink. Neck: Supple. Trachea is midline. Cardiovascular: Heart rate and rhythm are regular. Sinus rhythm on the monitor. There is a systolic murmur noted. Abdomen: Soft, obese and nontender. Bowel sounds are active. Neurologic: She is awake, alert, and oriented, and able to move around in the bed with generalized weakness. LABORATORY AND X-RAY: Today her white count is 7.51, hemoglobin 10.4, platelet count 89,000. Creatinine is 1.5. GFR 34. Total bilirubin 0.56, AST 18, ALT 13, alkaline phosphatase 67. No imaging reports today, however, yesterday her renal ultrasound showed bilateral dilated renal collecting systems. Cannot exclude hydronephrosis. ASSESSMENT AND PLAN: Ms. Hernandez is being treated for an Escherichia coli urinary tract infection with an associated bacteremia. Today she has had a GABRIELE. From the report given by the nurse, I believe that was negative for any vegetation. Also, she has had a renal ultrasound; however, there was a Arambula catheter in place at the time, so postvoid residual was not measured. There is a mention of the possibility of acute or subacute hydronephrosis. We will go ahead and consult Dr. Reyez to see her. For now, we will continue the Levaquin as ordered since her white count is normal. Hopefully, as her renal function improves, we can go ahead and increase her dose of Levaquin. Previous plans have been discussed with and recommended by Dr. Stiles. COMORBIDITIES: For Ms. Hernandez include that she is elderly with diabetes mellitus, morbid obesity and history of breast and uterine cancer, as well as rheumatic fever as a child. Dictated by DANILO Martel for Casper Stiles MD This chart was documented by, DANILO Martel and accurately reflects the services performed, treatment plan and medical decisions as attested by the providers signature Casper Stiles MD. cc: Casper Stiles MD [facility]
[2018-12-14] MEDS: LIPITOR PO SCH (21:41)
[2018-12-14] MEDS: PLAVIX PO SCH (21:41)
[2018-12-14] MEDS: NORVASC PO SCH (21:41)
[2018-12-14] MEDS: INDERAL LA PO SCH (21:41)
[2018-12-15] MEDS: HUMULIN R SUBQ SCH ×4 (06:21→21:55)
[2018-12-15] MEDS: SYNTHROID PO SCH (06:23)
[2018-12-15] MEDS ORDERED: INSULIN PEN NEEDLES ONE ×2 (07:12→07:50)
--- NOTE | 2018-12-15 08:21 | CONSULTATION ---
DATE OF CONSULTATION: 12/15/2018 CHIEF COMPLAINT: Bilateral hydronephrosis with urinary tract infection and acute kidney injury. HISTORY OF PRESENT ILLNESS: Ms. Hernandez is a 78-year-old who presented to the emergency room last Thursday after an episode of fever and chills with associated nausea and vomiting. The patient said her urine was foul smelling and had associated abdominal lower back pain. The patient was seen by her primary care doctor the day prior, and was doing normal at that time and had normal blood work. However, she developed significant nausea and vomiting and chills night into Thursday and this progressively worsened. She presented to the emergency room for evaluation. The patient was found to have an elevated white blood cell count as well as a urinalysis that showed 4+ bacteria and numerous RBCs and WBCs. She also was noticed to have acute kidney injury with creatinine elevated at 1.7 from a previous baseline of around 0.9 in February of 2018. The patient was admitted to the hospitalist for IV antibiotics and follow up her urine culture. Urine culture returned growing E. Coli which was relatively pansensitive as well as positive blood cultures. Infectious Disease has been consulted and is following her. The patient had a renal ultrasound performed on 12/13/2018, which showed dilation of both collecting systems more prominent on the right side than the left. A small amount of dilation of the ureters is seen. The patient states that she was not having significant back pain over the past of couple days, but describes having lower back pain at this time. She denies ever having any kidney stones previously or being seen by a urologist in many years. She denies significant history of prior urinary tract infections or hematuria, but did have some dysuria prior to presentation to the hospital. She states she has had a prior hysterectomy for uterine cancer a number of years ago. The patient denies any chest pain, shortness of breath, fevers, or chills since admission. PAST MEDICAL HISTORY: 1. Hypertension. 2. Hyperlipidemia. 3. Type 2 diabetes. 4. History of uterine cancer status post hysterectomy and radiation. 5. History of breast cancer status post left mastectomy. 6. Peripheral artery disease. 7. Hypothyroidism. PAST SURGICAL HISTORY: 1. Cholecystectomy. 2. Hysterectomy with radiation for uterine cancer. 3. Left mastectomy for breast cancer. ALLERGIES: Sulfa. HOME MEDICATIONS: 1. Arimidex 1 mg p.o. daily. 2. Atorvastatin 10 mg p.o. daily. 3. Plavix 75 mg p.o. at bedtime. 4. Vitamin D 50 units p.o. every 7 days. 5. Lantus 40 units subcutaneous at nighttime. 6. Humalog on sliding scale. 7. Levothyroxine 25 mcg p.o. daily. 8. Lisinopril 30 mg p.o. daily. 9. Metformin 1000 mg p.o. at bedtime. 10. Inderal 60 mg p.o. nightly. SOCIAL HISTORY: The patient denies tobacco, alcohol, or illicit drug use. FAMILY HISTORY: The patient does describe taking her mother to see Dr. Dela Cruz for bladder issues previously and father had renal cell carcinoma. REVIEW OF SYSTEMS: Twelve-point review of systems performed with all positives and negatives in HPI. PHYSICAL EXAMINATION: Vital Signs: Temperature 98.8 degrees, heart rate 66, blood pressure 169/56, and oxygen saturation 97% on room air. General: No acute distress. Resting comfortably in bed. Alert and oriented x3. HEENT: Normocephalic, atraumatic. Pupils equal, round, and reactive to light. Mucous membranes moist with relatively normal dentition. It looks like there are several small teeth missing on the lower gumline. Neck: Trachea midline with no obvious nodules or goiter. Cardiovascular: S1, S2. Small murmur with no obvious rubs or gallops. Regular rate and rhythm. Pulmonary: Good respiratory effort with good chest wall expansion. Abdomen: Soft, nontender, and nondistended. No palpable masses or hepatosplenomegaly. : No CVA tenderness. No suprapubic tenderness. There is some discomfort to the lower back overlying the iliac wings. Extremities: No evidence of lower extremity edema. Moving all extremities without issue. Skin: No obvious skin lesions or rashes. Neurologic: Gross motor sensory intact. LABORATORY: White blood cell count 7.5, hemoglobin 10.4, hematocrit 31.2, platelets 89,000, sodium 139, potassium 3.8, chloride 111, bicarb 17, BUN 23, creatinine 1.5, and glucose 108. Micro positive urine and blood cultures for E. Coli from 12/10/2018. ASSESSMENT AND PLAN: Ms. Hernandez is a 78-year-old with hypertension, hyperlipidemia, type 2 diabetes, history of uterine cancer status post hysterectomy and radiation, breast cancer status post mastectomy, peripheral artery disease and history of hypothyroidism who presents for consultation regarding bilateral hydronephrosis with acute kidney injury and urinary tract infection. The patient remained afebrile. Her most recent labs showed improving creatinine down to 1.5. Her baseline is around 0.9. The patient currently complains of lower back pain. Reviewed with her her renal ultrasound which did show some bilateral hydronephrosis. Uncertain if this leads to dilation of the ureters or if it isolates to the kidneys themselves. The patient has had a history of prior hysterectomy and radiation for uterine cancer. The patient clinically appears to be improving. I did recommend obtaining a CT scan to better assess her distal ureters to ensure there is no obstructing lesions or urolithiasis. We will obtain that and depending on results would dictate future course. If her creatinine continues to improve and no obvious obstructing lesions are seen, we will potentially hold off on placement of stents, but if hydronephrosis persists would consider cystoscopy and bilateral retrogrades, and placement of ureteral stents if necessary. We will continue IV antibiotics per infectious disease. We will continue to monitor. Please call with questions or concerns. cc: Alberto Reyez MD MTDD
--- NOTE | 2018-12-15 09:00 | Transesophageal Echocardiogram ---
DATE: 12/14/2018 PROCEDURE IN DETAIL: Ms. Hernandez was brought to the catheterization laboratory in a fasting state. Informed consent was obtained. She was prepped in the usual fashion. She was anesthetized with HurriCaine spray and propofol per Anesthesia. After appropriate sedation, the GABRIELE probe was passed without difficulty. Images were obtained in multiple planes. At the conclusion of the procedure, the probe was removed. No apparent complications. INDICATION FOR THE PROCEDURE: Bacteremia, evaluate for endocarditis. FINDINGS: 1. The right atrium appears normal in size. Upon injection of agitated saline contrast, there was no evidence of shunting across the interatrial septum. There was no evidence of shunting across the interatrial septum via color Doppler. 2. No vegetations seen adherent to the tricuspid valve. There was mild to moderate tricuspid regurgitation. 3. Normal RV size and systolic function. 4. No clear evidence of significant pulmonic insufficiency or adherent vegetation. 5. The left atrium appears severely enlarged. There was no evidence of clot in the left atrium or left atrial appendage. 6. No evidence of mitral valve prolapse. No evidence of adherent vegetation to the mitral valve. There was mild mitral regurgitation. 7. The left ventricle appeared to be normal in size with normal systolic function. Estimated ejection fraction was greater than 55%. 8. The aortic valve was somewhat sclerotic but seemed to open reasonably well. The valve was trileaflet. There was mild aortic insufficiency. No evidence of adherent vegetation. 9. The aortic root appeared to be normal in size with no evidence of dissection. The descending thoracic aorta appeared to have mild calcific aortic atherosclerosis distributed throughout the entire descending thoracic aorta. 10. No pericardial effusion identified. cc: MD Jama Moreno MD
--- NOTE | 2018-12-15 09:18 | Diag Imaging Result Doc PS360 ---
EXAM: CT ABDOMEN/PELVIS W/O CONTRAST 12/15/2018 HISTORY: STELLA, UTI, Evidence of hydronephrosis TECHNIQUE: This exam was performed using automated exposure control, adjustment of mA or kV according to patient size, and/or use of iterative reconstruction technique. COMMENT: The current examination is compared with the previous study of 03/27/2011. The patchy opacities which were present in the right lower lobe at the time the previous examination have largely resolved. There is some compressive atelectasis in both lower lobes. There is pleural fluid bilaterally more so on the right than the left. There are calcified nodes in the right hilum. There is coronary calcification. The liver is less hypodense than on the previous study. The spleen is slightly enlarged measuring 13.6 cm in greatest dimension. This has not changed significantly since the previous study. The adrenal glands are not enlarged. There is considerable calcification in the aorta and slight dilatation of the infrarenal aorta to a maximum of 2.2 cm is present. This is not changed significantly since the previous study. There is hydronephrosis on the right. There is no evidence of nephrolithiasis on either side. There is a Arambula catheter. The urinary bladder is not distended. There is no apparent stone in the ureters. There are a number of phleboliths in the pelvis. The distal left ureter is also somewhat distended. These findings were not present at the time the previous study. There is some right perinephric stranding. There is atrophy of the tail of the pancreas which was also present at the time the previous study. There is some stool and gas in the colon. The small bowel is not distended. There is a fat-containing umbilical hernia. There is edema in the retroperitoneum from the sacral promontory through the perirectal fascia. There is a small amount of free fluid in the cul-de-sac. There has been hysterectomy and appendectomy. There is vacuum joint phenomenon in the sacroiliac joints and degenerative disc and facet disease in the lumbar spine. IMPRESSION: 1. Bilateral pleural effusions. 2. Right hydronephrosis and bilateral hydroureter. The etiology of this is not clear however the possibility of fibrosis or neoplasia in the urinary bladder should be considered. Retroperitoneal edema/fibrosis. 3. Improved hepatic steatosis. Stable splenomegaly. Electronically signed by Joaquin Beaulieu 12/15/2018 9:16 AM
[2018-12-15] MEDS: ARIMIDEX PO SCH (09:20)
[2018-12-15] MEDS: BASAGLAR SUBQ SCH (09:20)
[2018-12-15] MEDS: NORVASC PO SCH ×2 (09:20→21:54)
[2018-12-15 10:21] LABS: BASO# 0.09 X1000 (0.0-0.2); EOS# 0.44 X1000 (0.0-0.7); EOS% 4.7 % (0.0-10.0); HEMATOCRIT 34.8 % (37.0-47.0); HEMOGLOBIN 11.8 g/dL (12.0-16.0); IMM GRAN# 0.27 X1000 (0.0-0.04); IMM GRAN% 2.9 % (0.0-0.5); LYMPH# 0.86 X1000 (1.2-3.4); LYMPH% 9.1 % (20.5-51.1); MCH 30.7 PG (27-31); MCHC 33.9 g/dL (33-37); MCV 90.6 FL (81-99); MONO# 1.18 X1000 (0.11-0.59); MONO% 12.5 % (1.7-9.3); MPV 11.4 FL (7.4-10.4); NEUT# 6.59 X1000 (1.4-6.5); NEUT% 69.8 % (42.2-75.2); PLT 130 X1000 (130-400); RBC 3.84 XMIL (4.2-5.4); RDW 12.5 % (11.5-14.5); WBC 9.43 X1000 (4.8-10.8)
[2018-12-15 10:37] LABS: CALCIUM 8.8 mg/dL (8.8-10.2); CREATININE 1.2 mg/dL (0.5-0.9); POTASSIUM 4.1 mmol/L (3.5-5.1)
[2018-12-15 10:46] LABS: BANDS 2 % (0-1); EOS 2 % (1-10); LYMPHS 8 % (21-51); SEGS 84 % (42-75)
[2018-12-15] MEDS: NS 1,000 ML IV SCH ×2 (11:53→23:52)
[2018-12-15] MEDS: LEVAQUIN 250 MG/D5W 250 MG/50 ML IVPB IV SCH (11:54)
--- NOTE | 2018-12-15 15:19 | PROGRESS NOTE ---
DATE: 12/15/2018 SUBJECTIVE: Patient reports feeling okay. No fever or chills reported during the last 24 hours. OBJECTIVE: Vital Signs: Temperature 98.3 degrees, heart rate 63, respiratory 17, blood pressure 164/53, O2 saturation 98% on room air. General: This is a chronically ill-appearing, 78-year-old female, lying in bed, in no acute distress. HEENT: Head is normocephalic, atraumatic. Neck: No JVD noted. No carotid bruits. No lymphadenopathy. No thyromegaly. Cardiovascular: S1, S2 heard. No murmurs, gallops, or rubs. Regular rate and rhythm. Respiratory: Clear bilaterally to auscultation. No work of breathing or using accessory muscles. Abdomen: Soft, nontender to palpation. Bowel sounds present. No organomegaly. Extremities: No clubbing, cyanosis, or edema. Peripheral pulses present in both legs. Neurological: Patient is alert and oriented x3. Moves 4 extremities. LABORATORY DATA: Reviewed. ASSESSMENT AND PLAN: 1. Sepsis secondary to Escherichia coli bacteremia. Patient continues to be on Levaquin 250 mg daily. Because of concern for possible endocarditis, Dr. Stiles has ordered a GABRIELE which returned normal. We will continue to monitor this patient closely. 2. Acute kidney injury/hydronephrosis. Dr. Stiles from Infectious Disease has consulted Dr. Reyez from Urology. On the renal ultrasound it showed bilateral hydronephrosis, and Urology requested a CT abdomen and pelvis which basically showed right hydronephrosis. Renal function continues to improve. I will leave to them to decide this if patient will need a cystoscopy plus stent placement or not. We will continue to monitor this patient. 3. Diabetes mellitus type 2. We will continue with sliding scale insulin and Accu-Chek before meals and also at bedtime. 4. Hypertension. Blood pressure has been in the range of 150 to 160. We have added amlodipine 5 mg p.o. daily. We will continue to monitor. 5. Disposition. We are following the lead from ID and Urology. Also, patient is feeling weak, so we have consulted Physical Therapy. Will see if this patient needs to go to rehab versus home with home health. cc: Dorian Ang MD
--- NOTE | 2018-12-15 15:52 | INFECTIOUS DISEASE PROGRESS NO ---
DATE: 12/15/2018 PRESENT ILLNESS: The patient has an E. coli urinary tract infection with an associated bacteremia. MEDICATIONS: The patient is receiving Levaquin 250 mg IV daily. This is day #2 of treatment with the antibiotic. PHYSICAL EXAMINATION: Vital Signs: Temperature is 98.3 degrees, pulse 63, respirations 17, blood pressure 164/53. General: This is an obese, elderly female. She is in no acute distress. Head, eyes, ears, nose, throat: She can hear my spoken words and see near objects. She does not have any white coating on her tongue. Neck: No stiffness. Lungs: Clear to auscultation. Cardiovascular: Heart rate is regular and has a systolic murmur. Abdomen: Soft and nontender. Pelvic exam: The patient has a Arambula catheter in place. Neurologic: The patient is alert. She can move her extremities. There is no tremor. LAB AND RADIOLOGY: The CBC for today shows a white count of 9,430, hemoglobin 11.8, and platelet count 180,000. Creatinine is 1.2. GFR is 44. The patient transesophageal echocardiogram showed no vegetations. ASSESSMENT AND PLAN: I plan to continue Levaquin for the patient's Escherichia coli urinary tract infection with bacteremia. Dr. Reyez has seen the patient and he may do a cystoscopy tomorrow and possibly put stents in the patient's ureters. COMORBIDITIES: The patient is elderly. She has diabetes mellitus, morbid obesity, and a history of breast and uterine cancer, as well as rheumatic fever as a child. cc: Casper Stiles MD
[2018-12-15] MEDS: INDERAL LA PO SCH (21:54)
[2018-12-15] MEDS: PLAVIX PO SCH (21:54)
[2018-12-15] MEDS: LIPITOR PO SCH (21:54)
[2018-12-16] MEDS: NS 1,000 ML IV SCH ×2 (03:39→13:57)
[2018-12-16] MEDS: HUMULIN R SUBQ SCH ×3 (06:44→15:53)
[2018-12-16] MEDS: SYNTHROID PO SCH (06:45)
[2018-12-16 08:15] LABS: CALCIUM 8.6 mg/dL (8.8-10.2); POTASSIUM 3.7 mmol/L (3.5-5.1)
[2018-12-16 08:19] LABS: BASO# 0.08 X1000 (0.0-0.2); EOS% 6.3 % (0.0-10.0); HEMOGLOBIN 10.9 g/dL (12.0-16.0); IMM GRAN# 0.38 X1000 (0.0-0.04); IMM GRAN% 4.8 % (0.0-0.5); LYMPH% 12.5 % (20.5-51.1); MCH 31.1 PG (27-31); MCHC 34.1 g/dL (33-37); MCV 91.2 FL (81-99); MONO# 1.07 X1000 (0.11-0.59); MONO% 13.4 % (1.7-9.3); NEUT# 4.95 X1000 (1.4-6.5); PLT 145 X1000 (130-400); RBC 3.51 XMIL (4.2-5.4); RDW 12.5 % (11.5-14.5); WBC 7.98 X1000 (4.8-10.8)
[2018-12-16 08:46] LABS: EOS 18 % (1-10); LYMPHS 18 % (21-51); MONO 2 % (1-9); SEGS 62 % (42-75)
[2018-12-16] MEDS: ARIMIDEX PO SCH (09:43)
[2018-12-16] MEDS: BASAGLAR SUBQ SCH (09:44)
[2018-12-16] MEDS: NORVASC PO SCH ×2 (09:45→20:01)
[2018-12-16] MEDS: LEVAQUIN 250 MG/D5W 250 MG/50 ML IVPB IV SCH (10:54)
--- NOTE | 2018-12-16 13:10 | PROGRESS NOTE ---
DATE: 12/16/2018 SUBJECTIVE: Patient reports feeling fine. No fever or chills reported. OBJECTIVE: Vital Signs: Temperature 98.4 degrees, heart rate 86, respiratory rate 14, blood pressure 147/47, O2 saturation 97% on room air. General Examination: This is a chronically ill- appearing 78-year-old female lying in bed, in no acute distress. Cardiovascular: S1, S2 heard. No murmurs, gallops, or rubs. Regular rate and rhythm. Respiratory: Clear bilaterally to auscultation. No work of breathing or using accessory muscles. Abdomen: Soft, nontender to palpation. Bowel sounds present. No organomegaly. Extremities: No clubbing, cyanosis, or edema. Peripheral pulses present in both legs. Neurological: Patient alert and oriented x3. Moves all 4 extremities. LABORATORY DATA: Creatinine today is 1.0. ASSESSMENT AND PLAN: 1. Sepsis secondary to Escherichia coli bacteremia. Dr. Stiles from Infectious Disease is on board. Currently, she is on Levaquin 250 mg IV daily. I will leave it to him to adjust the doses of the medication according to renal function that is almost back to normal today. 2. Acute kidney injury/hydronephrosis. Urology has been involved in her care because of hydronephrosis. The CT scan of the abdomen showed mild right hydronephrosis. Considering that the renal function is almost back to normal. Urology Dr. Reyez is not planning to do any procedures here in the hospital. He is planning to see her in the office in a couple of weeks. 3. Diabetes mellitus type 2. We will continue with sliding scale insulin. Accu-Chek before meals and also at bedtime. 4. Hypertension. Blood pressure in the range of 140s and 160s most of the time. Yesterday it was running in the range of 160s to 170s. I think at this point in time we can add losartan 50 to her current treatment. DISPOSITION: I think at this point the patient is stable. There is a plan for sending to rehab facility on this patient. At this point, patient is medically stable and ready to be released whenever we got a bed for her. cc: Dorian Ang MD
[2018-12-16] MEDS: COZAAR PO SCH (13:57)
[2018-12-16] MEDS ORDERED: LEVAQUIN PO ONE (14:40)
--- NOTE | 2018-12-16 15:31 | INFECTIOUS DISEASE PROGRESS NO ---
DATE: 12/16/2018 PRESENT ILLNESS: The patient has an E coli urinary tract infection with an associated bacteremia. The patient is developing oral candidiasis. MEDICATIONS: The patient has been receiving Levaquin at a reduced dose of 250 mg because of the patient's renal insufficiency. PHYSICAL EXAMINATION: Vital Signs: Temperature is 98.4, pulse 63, respirations 20, blood pressure 147/47. General: This is an obese, elderly female. She is in no acute distress. Head, Eyes, Ears, Nose and Throat: She can hear my spoken words and see near objects. She has cheilosis and her tongue is erythematous, and it is causing her pain. Neck: No stiffness. Lungs: Clear to auscultation. Cardiovascular: Heart rate is regular. There is a systolic murmur. Abdomen: Soft and nontender. Neurologic: Patient is alert. She can move her extremities. She does not have a tremor. LABORATORY AND RADIOLOGY: There is no new radiology test. CBC shows a white count of 7980, hemoglobin 10.9 and platelet count 145,000. Creatinine is 1.0 and GFR is 54. ASSESSMENT AND PLAN: Patient has an Escherichia coli urinary tract infection with bacteremia. I have increased the dose of a Levaquin to 500 mg a day because of the patient's improvement in her renal function. Also, I have ordered repeat blood cultures today. Dr. Reeyz is managing the patient's hydronephrosis. The patient is developing oral candidiasis. I have ordered nystatin swish and swallow. COMORBIDITIES: The patient is elderly. She has diabetes mellitus. She has morbid obesity. cc: Casper Stiles MD [facility]
[2018-12-16] MEDS: MYCOSTATIN SUSP PO SCH ×2 (16:11→20:10)
--- NOTE | 2018-12-16 19:08 | PROGRESS NOTE ---
DATE: 12/16/2018 SUBJECTIVE: No acute events overnight. The patient remains afebrile. Denies any flank pain or back pain. The patient's vital signs are all stable. The patient's urethral catheter is draining well with clear yellow urine. The patient overall feels well and is tolerating a regular diet. Has been up to the chair twice today and walked in the hallway. OBJECTIVE: Temperature 98 degrees, heart rate 64, blood pressure 165/54, oxygen saturation 99% on room air. General: No acute distress. Resting comfortably in bed. Respiratory: Good respiratory effort without audible wheezing or rales. Abdomen is soft, nontender, nondistended. No palpable masses or hepatosplenomegaly. : Urethral catheter in place, draining clear yellow urine. Musculoskeletal: Moving all extremities without issue. LABORATORY DATA: White blood cell count 7.98, hemoglobin 10.9, hematocrit 32, platelets 145,000. Sodium 142, potassium 3.7, chloride 113, bicarbonate 18, BUN 17, creatinine 1.0, glucose 109. ASSESSMENT AND PLAN: Ms. Hernandez is a 78-year-old with hypertension; hyperlipidemia; type 2 diabetes; history of uterine cancer, status post hysterectomy and radiation; breast cancer, status post mastectomy; peripheral artery disease; history of hypothyroidism. She was evaluated for bilateral hydronephrosis with acute kidney injury. Her creatinine has slowly improved and is at 1.0 with a baseline of 0.9. White blood cell count is 8 today. She remains afebrile for over 48 hours now. I reviewed with her the CT scan yesterday, which did show a small amount of bilateral hydronephrosis as well as dilation of the ureters, with no evidence of obstructing lesions. The patient clinically is improving. If the patient develops worsening fevers, chills, flank pain, or worsening renal function, we will consider cystoscopy and bilateral retrograde pyelograms with placement of ureteral stents. At this time I think that she is improving and likely will just need outpatient followup with a repeat renal ultrasound. I recommend continued antibiotics per Infectious Disease and tailor to culture specific data. Would plan to remove her Arambula catheter tomorrow, as she describes not having significant issues prior to admission. We will continue to monitor. Please call with questions or concerns. cc: MD AASHISH Mojica
[2018-12-16] MEDS: TYLENOL PO PRN (19:55)
[2018-12-16] MEDS: LIPITOR PO SCH (20:01)
[2018-12-16] MEDS: INDERAL LA PO SCH (20:01)
[2018-12-16] MEDS: PLAVIX PO SCH (20:01)
[2018-12-17] MEDS: HUMULIN R SUBQ SCH ×3 (01:47→12:02)
[2018-12-17] MEDS: NS 1,000 ML IV SCH ×2 (01:48→06:33)
[2018-12-17] MEDS: SYNTHROID PO SCH (06:31)
[2018-12-17 07:41] LABS: BASO# 0.07 X1000 (0.0-0.2); BASO% 0.8 % (0.0-0.8); EOS# 0.66 X1000 (0.0-0.7); EOS% 7.5 % (0.0-10.0); HEMATOCRIT 33.5 % (37.0-47.0); HEMOGLOBIN 11.2 g/dL (12.0-16.0); IMM GRAN# 0.42 X1000 (0.0-0.04); IMM GRAN% 4.8 % (0.0-0.5); LYMPH# 1.05 X1000 (1.2-3.4); LYMPH% 11.9 % (20.5-51.1); MCH 30.4 PG (27-31); MCHC 33.4 g/dL (33-37); MONO# 0.76 X1000 (0.11-0.59); MONO% 8.6 % (1.7-9.3); MPV 10.9 FL (7.4-10.4); NEUT# 5.83 X1000 (1.4-6.5); NEUT% 66.4 % (42.2-75.2); PLT 189 X1000 (130-400); RBC 3.68 XMIL (4.2-5.4); RDW 12.6 % (11.5-14.5); WBC 8.79 X1000 (4.8-10.8)
[2018-12-17 08:00] LABS: BANDS 2 % (0-1); LYMPHS 16 % (21-51); MONO 4 % (1-9); SEGS 74 % (42-75)
[2018-12-17 08:05] LABS: CALCIUM 7.6 mg/dL (8.8-10.2); CREATININE 1.1 mg/dL (0.5-0.9); POTASSIUM 3.5 mmol/L (3.5-5.1)
[2018-12-17] MEDS: MYCOSTATIN SUSP PO SCH ×2 (08:49→12:02)
[2018-12-17] MEDS: BASAGLAR SUBQ SCH (08:49)
[2018-12-17] MEDS: NORVASC PO SCH (08:49)
[2018-12-17] MEDS: COZAAR PO SCH (08:49)
[2018-12-17] MEDS: ARIMIDEX PO SCH (08:49)
[2018-12-17] MEDS ORDERED: LEVAQUIN PO SCH (09:00)
--- NOTE | 2018-12-17 11:38 | DISCHARGE SUMMARY ---
ADMISSION DATE: 12/11/2018 DISCHARGE DATE: 12/17/2018 ADMISSION DIAGNOSES: 1. Urinary tract infection. 2. Acute kidney injury. 3. Fluid volume depletion. 4. Diabetes mellitus type 2. 5. Hypertension. 6. Hypothyroidism. DISCHARGE DIAGNOSES: 1. Sepsis secondary to Escherichia coli bacteremia. 2. Acute kidney injury and hydronephrosis. 3. Diabetes mellitus type 2. 4. Hypertension. 5. Urinary tract infection. CONSULTATIONS: 1. Dr. Casper Stiles 2. Dr. Alberto Reyez 3. Dr. Jama Rodriguez SURGERIES OR PROCEDURES: On 12/14/2018 she had a GABRIELE performed by Dr. Adam Arroyo that showed an ejection fraction of greater than 55%. There was no vegetations. There was [id number] TR. The left atrium appeared to be severely enlarged without clot in the atrium or the atrial appendage. There was mitral valve prolapse but there was no vegetation on that. Mild MR. Aortic valve was a little sclerosed but opened well. There was mild aortic insufficiency. No vegetation on that. The descending thoracic aorta appeared to have some mild aortic atherosclerosis. There was no pericardial effusion. This was performed due to the bacteremia. HOSPITAL COURSE: On 12/11/2018 Ms. Мария Hernandez, a 78-year-old female, presented with complaints of dysuria, urinary frequency, fever, body aches, and chills as well as some nausea, vomiting, and lower abdominal and lower back pain. There was a report of strong odor to the urine and that the urine had been much darker in color. She had leukocytosis with a white blood cell count of 17,000. Urinalysis revealed 4+ bacteria. She did have some mild acute kidney injury or dehydration with it with a creatinine of 1.7. She initially received Zosyn but was changed to Rocephin due to acute kidney injury and she was initiated on IV fluids and transferred to the floor. Due to the leukocytosis they did do a culture workup and it revealed that she also had E. coli bacteremia. Dr. Stiles was consulted with Infectious Disease and the patient was switched to Levaquin. He also ordered for a GABRIELE to be performed by the [facility]. The GABRIELE resulted as no vegetation on the valves so endocarditis was ruled out. There was a renal ultrasound that was ordered and also an order to discontinue the Arambula catheter and he was going to measure postvoid residual of urine and if there was urinary retention he wanted to consult Urology. On 12/15/2018 Dr. Alberto Reyez with Urology was consulted due to bilateral hydronephrosis on top on the urinary tract infection and acute kidney injury. By the time he saw her, her creatinine was starting to improve and it was down to 1.5 from 1.7. The renal ultrasound did show the bilateral hydronephrosis. He wanted to do a CT scan of the distal ureters to evaluate for possible obstructing lesions or urolithiasis and if those were negative he was going to hold off on placement of stents but if hydronephrosis persisted then he would consider cystoscopy and bilateral retrogrades and placement of ureteral stents if necessary. He wanted to continue with antibiotics IV as well. On the he reviewed her CT which did show a small amount of bilateral hydronephrosis as well as dilation of the ureters but no evidence of obstructing lesions. The patient was clinically improving, was without fevers, had improved kidney function, and just wanted to do a repeat renal ultrasound as an outpatient follow up along with continuing the antibiotics and he wanted to discontinue the Arambula catheter today. Dr. Stiles kept her on the Levaquin and decreased the dose due to the renal insufficiency. There was some note made that there was developing oral candidiasis and she was started on oral nystatin. Due to the Levaquin being at a reduced dose during the stay and the improved kidney function the Levaquin dosing was increased back from 250 mg to 500 mg daily. Repeat blood cultures performed on the , yesterday, have been ordered and performed but of course no results are back yet. The last time she had a fever was on the , which was 3 days ago. Her white blood cell count has been normal since the . She is doing well and she is going to be discharged to [facility]. DISCHARGE VITAL SIGNS: Temperature 97.7, heart rate 65, respiratory rate 18, blood pressure 178/67, and O2 saturation 100% on room air. LAB DATA: White blood cells 8,000, hemoglobin 11, hematocrit 33, and platelet count 189. Sodium 145, potassium 3.5, BUN 13, creatinine 1.1, glucose 91, and calcium 7.6. PERTINENT IMAGING: On 12/10/2018 there was a chest x-ray that was a negative exam. On 12/11/[address] that showed no acute findings except for a chronic right mastoid effusion. There was a 2D echo performed which showed a pulmonary systolic pressure of 49, EF of 55% to 60%, and mild LVH that is associated with diastolic dysfunction. So, there is some diastolic dysfunction. On 12/13/2018 renal ultrasound showed bilateral dilated renal collecting systems more prominent on the right; acute or subacute hydronephrosis could not be excluded. On 12/14/2018 she had the GABRIELE with results reported under procedures. Then on 12/15/[address] showed bilateral pleural effusions, right hydronephrosis, and bilateral hydroureter, retroperitoneal edema and fibrosis, improved hepatic steatosis, and stable splenomegaly. DISCHARGE DIET: Diabetic. DISCHARGE ACTIVITY: As tolerated. Physical therapy was ordered. Occupational therapy as did an evaluation. DISCHARGE MEDICATIONS: 1. Propranolol 60 mg p.o. nightly. 2. Arimidex 1 mg p.o. daily. 3. Insulin Lispro. 4. Lantus 40 units subcutaneously daily. 5. Levothyroxine sodium 25 mcg p.o. daily. 6. Lipitor 10 mg p.o. nightly. 7. Metformin 1,000 mg p.o. nightly. 8. Plavix 75 mg p.o. nightly. 9. Vitamin D2 50,000 units p.o. every 7 days. 10.Norvasc 5 mg p.o. twice daily. FOLLOW UPS: Dr. Stiles, Dr. Rodriguez, and Dr. Perez. She will need to follow back up with Dr. Reyez for an outpatient ultrasound. DISCHARGE INSTRUCTIONS: Should be to continue the Levaquin 250 mg p.o. daily for the E. coli and bacteremia UTI and to continue the oral nystatin for candidiasis. DISCHARGE DISPOSITION: [facility]. Dictated by DANILO Gilliam for Dorian Ang MD Addendum: Patient seen and examined by myself. Agree with DANILO note. It reflects my assessment and plan. Patient is being discharged in stable condition to rehab. Will be seen by subspecialist mentioned above and patient needs to call their office for an appointment. cc: DANILO Gilliam MD [facility]
[2018-12-17 12:20] VITALS: BP 169/64
== END 2018-12-17 15:41 | DRG 872 ==
LOC: SUPCPDRO → ED 21:06 → 3N 12-11 04:44 → SUATTDRO 12-11 04:44
PROVIDERS: ATTEND Internal Medicine
CPT/HCPCS: 51701; 70450; 71010; 71045; 74176; 76770; 80048; 80053; 81001; 82550; 82948; 83036; 83605; 84443; 85025; 85610; 87040; 87077; 87088; 87186; 87275; 87276; 87804; 93005; 93306; 93312; 96361; 96365; 96375; 97162; 97165; 97530; 97535; 99285; A9270; J0360; J0696; J1956; J2405; J2543; J7030; S0170; XXXXX